=== PATIENT | female | born 1975 ===

== ENCOUNTER 2018-11-16 19:07 | Emergency (ER) | payer OTHER ==
--- NOTE | 2018-11-16 19:56 | Emergency Department Report ---
Chief Complaint: Upper Respiratory Infection Stated Complaint: HEADACHE,DIZZINESS,COUGH Time Seen by Provider: 11/16/18 19:52 - HPI History of Present Illness: This is a 43 y.o. F that presents to the ER with URI for 5 days. PMH Asthma cc: headache, fever, sinus pressure, and dizziness MSE screening note: Focused history and physical exam performed. Due to findings the following was ordered: ACC for further evaluation. ED Disposition for MSE Condition: Stable
[2018-11-16 20:05] VITALS: BP 139/84
== END 2018-11-16 23:30 | disposition left against medical advice (07) ==
LOC: ED 19:07
DX: J06.9 Acute upper respiratory infection, unspecified (principal); Z53.21 Procedure and treatment not carried out due to patient leaving prior to being seen by health care provider